=== PATIENT | female | born 1975 | race American Indian/Alaskan Native ===

== ENCOUNTER 2017-01-07 08:14 | Emergency (ER) | payer BC ==
[2017-01-07 08:25] VITALS: BMI 30.6
[2017-01-07 08:32] VITALS: RESP 16
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
[2017-01-07 09:37] LABS: URINE BILIRUBIN NEGATIVE (NEGATIVE); URINE BLOOD LARGE (NEGATIVE); URINE GLUCOSE (UA) NEGATIVE (NEGATIVE); URINE KETONE NEGATIVE (NEGATIVE); URINE LEUKOCYTE ESTERASE NEGATIVE Leu/uL (NEGATIVE); URINE PROTEIN 30 mg/dL (<30 mg/dL); URINE UROBILINOGEN 0.2 E.U./dL (<1 E.U./dL)
[2017-01-07 09:40] LABS: URINE APPEARANCE CLOUDY (CLEAR); URINE COLOR LIGHT BROWN (YELLOW)
[2017-01-07 09:47] LABS: URINE BACTERIA FEW (NEG); URINE RBC TNTC /hpf (0-2)
[2017-01-07 10:54] VITALS: BP 138/81; PULSE 84; TEMP 97.4; O2SAT 98
== END 2017-01-07 10:30 | disposition home or self-care (01) ==
LOC: ED 08:14
DX: M43.6 Torticollis (principal); I10 Essential (primary) hypertension